=== PATIENT | female | born 1960 ===

== ENCOUNTER → 2018-11-10 21:03 | Outpatient (REF) | payer OTHER, SELFPAY ==
[2018-11-10 21:18] LABS: Alanine Aminotransferase 20 IU/L (9-52); Albumin 4.5 g/dL (3.5-5.0); Albumin Globulin Ratio 1.7 (1.0-2.8); Alkaline Phosphatase 52 U/L (38-126); Aspartate Aminotransferase 26 IU/L (14-36); BUN Creatinine Ratio 12.2 (6-22); Bilirubin Total 0.8 mg/dL (0.2-1.3); Blood Urea Nitrogen 11 mg/dL (7-17); Calcium 9.7 mg/dL (8.4-10.2); Carbon Dioxide 31 mmol/L (22-32); Chloride 103 mmol/L (98-107); Cholesterol 150 mg/dL (140-199); Estimated Glomerular Filt Rate > 60.0 mL/min (>60); Globulin 2.7 g/dL (1.7-4.1); Glucose 73 mg/dL (70-100); HDL Cholesterol 62 mg/dL (40-60); HEMOLYSIS 17 (0-50); LDL Cholesterol Calculated 70 mg/dL (<100); Potassium 4.8 mmol/L (3.4-5.1); Sodium 143 mmol/L (137-145); Total Protein 7.2 g/dL (6.3-8.2); Triglycerides 92 mg/dL (35-150)
[2018-11-10 21:26] LABS: Add Manual Diff / Slide Review NO; Basophils Percent Auto 1.1 % (0-2); Eosinophils Percent Auto 2.3 % (2-4); Hematocrit 41.2 % (36-46); Hemoglobin 13.8 g/dL (12.0-16.0); Lymphocytes Percent Auto 35.4 % (25-40); Mean Corpuscular HGB Conc 33.4 % (30-36); Mean Corpuscular Hemoglobin 30.6 PG (26-34); Mean Corpuscular Volume 91.7 fL (80-100); Neutrophils Absolute Auto 2400 /uL (1500-7000); Neutrophils Percent Auto 53.2 % (50-75); Platelet Count 188 X10^3/uL (150-400); Red Cell Distribution Width 13.8 % (11.6-14.8); White Blood Cell Count 4.4 X10^3/uL (4.5-11.0)
[2018-11-10 21:47] LABS: Thyroid Stimulating Hormone 1.45 uIU/mL (0.47-4.68)
[2018-11-12 18:39] LABS: ANA Screen, IFA Negative (Negative)
== END ==
LOC: LAB 21:03
PROVIDERS: Visit Provider Naturopath
DX: K13.70 Unspecified lesions of oral mucosa (principal); Z00.00 Encounter for general adult medical examination without abnormal findings
CPT/HCPCS: 36415; 80053; 80061; 84443; 85025; 86038

== ENCOUNTER → 2019-03-02 22:23 | Outpatient (REF) | payer OTHER, SELFPAY ==
[2019-03-03 01:05] LABS: Uric Acid 4.6 mg/dL (2.5-6.2)
[2019-03-05 17:03] LABS: ANA Screen, IFA Negative (Negative)
== END ==
LOC: LAB 22:23
PROVIDERS: Visit Provider Naturopath
DX: K13.70 Unspecified lesions of oral mucosa (principal); R22.41 Localized swelling, mass and lump, right lower limb
CPT/HCPCS: 36415; 84550; 86038